=== PATIENT | female | born 1985 | race Two or more races ===

== ENCOUNTER 2018-07-09 09:11 | Emergency (ER) | payer OTHER ==
[~2018-07-09] VITALS: Ht 167.6 cm; Wt 61.2 kg
[~2018-07-09 09:11] MED LIST: CELEBREX100 MG PO
== END 2018-07-09 13:41 | disposition home or self-care (01) ==
LOC: ER 09:11
DX: O26.891 Other specified pregnancy related conditions, first trimester (principal); R10.2 Pelvic and perineal pain; Z34.01 Encounter for supervision of normal first pregnancy, first trimester

== ENCOUNTER 2018-09-24 19:49 | Emergency (ER) | payer OTHER ==
[~2018-09-24] VITALS: Ht 167.6 cm; Wt 63.5 kg
[2018-09-24] MEDS ORDERED: PRENATABS FA T1 EACH (20:20)
[2018-09-25] MEDS ORDERED: PEPCID40 MG PO (06:32)
[2018-09-25] MEDS ORDERED: PHENERGAN25 MG PO (06:32)
== END 2018-09-25 07:52 | disposition home or self-care (01) ==
LOC: ER 19:49
DX: O21.0 Mild hyperemesis gravidarum (principal); Z34.02 Encounter for supervision of normal first pregnancy, second trimester

== ENCOUNTER 2019-02-16 10:13 | Outpatient (CLI) | payer OTHER ==
[~2019-02-16 10:13] MED LIST changes: +PEPCID40 MG PO; +PHENERGAN25 MG PO; +PRENATABS FA T1 EACH
== END 2019-02-16 15:39 | disposition home or self-care (01) ==
LOC: NST 10:13
DX: Z34.83 Encounter for supervision of other normal pregnancy, third trimester (principal)

== ENCOUNTER 2019-02-18 09:03 | Outpatient (CLI) | payer OTHER | END 2019-02-18 11:10 | disposition home or self-care (01) | LOC: NST 09:03 | DX: Z34.83 Encounter for supervision of other normal pregnancy, third trimester (principal) ==

== ENCOUNTER 2019-02-20 09:27 | Inpatient (IN) | payer OTHER ==
[~2019-02-20] VITALS: Ht 167.6 cm; Wt 2.3 kg
[2019-02-20] MEDS ORDERED: ZITHROMAX200 MG PO (11:11)
[2019-02-23] MEDS ORDERED: OXYC1TAB9 PO (06:38)
[2019-02-23] MEDS ORDERED: KETO10TA2 PO (06:38)
== END 2019-02-23 14:47 | DRG 788 ==
LOC: NST 09:27 → OB/GYN 10:55 → O/R 10:55 → LDR 10:55 → O/R 12:48 → OB/GYN 13:57
PROVIDERS: ADMIT Obstetrics & Gynecology
PROC: 4A1HXCZ Monitoring of Products of Conception, Cardiac Rate, External Approach (ICD-10-PCS; 2019-02-20)
PROC: 4A033R1 Measurement of Arterial Saturation, Peripheral, Percutaneous Approach (ICD-10-PCS; 2019-02-20)
PROC: 10D00Z1 Extraction of Products of Conception, Low, Open Approach (ICD-10-PCS; principal; 2019-02-20 12:00)
DX: O82 Encounter for cesarean delivery without indication (principal); O34.211 Maternal care for low transverse scar from previous cesarean delivery; O36.5930 Maternal care for other known or suspected poor fetal growth, third trimester, not applicable or unspecified; Z3A.37 37 weeks gestation of pregnancy; Z37.0 Single live birth

== ENCOUNTER 2021-04-23 16:22 | Emergency (ER) | payer OTHER ==
[~2021-04-23] VITALS: Ht 167.6 cm; Wt 65.8 kg
[~2021-04-23 16:22] MED LIST changes: +KETO10TA2 PO; +OXYC1TAB9 PO; +ZITHROMAX200 MG PO
[2021-04-23] MEDS ORDERED: DICLOFENAC SODI75 MG PO (19:58)
[2021-04-23] MEDS ORDERED: MEDROLPACK PO (19:58)
== END 2021-04-23 20:53 | disposition home or self-care (01) ==
LOC: ER 16:22
DX: G50.0 Trigeminal neuralgia (principal)

== ENCOUNTER 2023-05-19 15:51 | Outpatient (CLI) | payer OTHER ==
[~2023-05-19 15:51] MED LIST changes: +DICLOFENAC SODI75 MG PO; +MEDROLPACK PO
== END 2023-05-19 15:52 | disposition home or self-care (01) ==
LOC: SONOGRAMA 15:51
PROVIDERS: ATTEND Pathology Anatomic Pathology & Clinical Pathology
DX: D34 Benign neoplasm of thyroid gland (principal); E07.89 Other specified disorders of thyroid

== ENCOUNTER 2023-07-10 21:09 | Emergency (ER) | payer OTHER ==
[~2023-07-10] VITALS: Ht 167.6 cm; Wt 61.2 kg
[2023-07-10] MEDS ORDERED: CEFTRIAXONE SODIUM 1,000 MG VIAL IM STA (22:43)
[2023-07-10] MEDS ORDERED: KETOROLAC TROMETHAMINE 15 MG VIAL IM STA (22:44)
[2023-07-10] MEDS ORDERED: ACETAMINOPHEN 500 MG GEL..CAP PO STA (22:44)
[2023-07-10] MEDS ORDERED: ADVIL DUAL ACT1 EACH PO (22:51)
[2023-07-10] MEDS ORDERED: CEFADROXIL500 MG PO (22:51)
== END 2023-07-10 23:13 | disposition home or self-care (01) ==
LOC: ER 21:09
DX: S09.301A Unspecified injury of right middle and inner ear, initial encounter (principal); X58.XXXA Exposure to other specified factors, initial encounter; Y93.89 Activity, other specified; Y92.9 Unspecified place or not applicable; Y99.9 Unspecified external cause status

== ENCOUNTER 2024-07-06 09:41 | Emergency (ER) | payer OTHER ==
[~2024-07-06] VITALS: Ht 167.6 cm; Wt 61.2 kg
[~2024-07-06 09:41] MED LIST changes: +ADVIL DUAL ACT1 EACH PO; +CEFADROXIL500 MG PO
[2024-07-06 10:37] VITALS: BP 100/65; O2SAT 99
[2024-07-06] MEDS ORDERED: ONDANSETRON HCL 2 MG/ML VIAL IV ONE (11:15)
[2024-07-06] MEDS ORDERED: 0.9 % SODIUM CHLORIDE 1,000 ML IV ONE (11:15)
[2024-07-06] MEDS ORDERED: FAMOtidine 10 MG/ML (4ML VIAL) IV ONE (11:15)
[2024-07-06] MEDS ORDERED: ONDANSETRON HCL 2 MG/ML VIAL ONE (11:22)
[2024-07-06] MEDS ORDERED: FAMOTIDINE/PF 20 MG/2 ML VIAL ONE (11:23)
[2024-07-06 12:13] LABS: INR 1.06; PARTIAL THROMBOPLASTIN TIME 28.4 SECONDS (22.0-34.0)
[2024-07-06 12:16] LABS: HEMATOCRIT 38.9 % (36.0-45.00); MEAN CELL VOLUME 84.7 fL (80.00-100.00); MEAN CORPUSCULAR HEMOGLOBIN 28.4 pg (27.00-32.0); MEAN CORPUSCULAR HGB CONC 33.6 g/dl (32.0-36.0); RED BLOOD COUNT 4.59 M/uL (4.00-6.00); RED CELL DISTRIBUTION WIDTH 12.8 % (11.5-14.5)
[2024-07-06 12:18] LABS: PLATELET COUNT 127 K/uL (150-450)
[2024-07-06 12:20] LABS: PROTHROMBIN TIME 11.5 SECONDS (9.0-11.5)
[2024-07-06 12:24] LABS: ALBUMIN 3.5 gm/dL (3.4-5.0); ALKALINE PHOSPHATASE 52 U/L (50-136); ALT/SGPT 23 U/L (12-78); ANION GAP 10 (10.0-20.0); AST/SGOT 22 U/L (15-37); BILIRUBIN TOTAL 0.39 mg/dL (0.3-1.2); BLOOD UREA NITROGEN 14 mg/dL (7-18); BUN CREA RATIO 22 (7.0-25.0); CARBON DIOXIDE 28 mEq/L (21-32); CHLORIDE 108 mmol/L (98-107); CREATININE SERUM 0.64 mg/dL (0.55-1.02); GFR 102.78; GLOBULINA 3.7 G/DL (2.4-3.5); GLUCOSE FASTING 111 mg/dL (65-100); OSMOLALITY SERUM 284 MOSM/KG (275-295); POTASSIUM 3.77 mEq/L (3.5-5.1); SODIUM 142 mmol/L (136-145); TOTAL PROTEIN 7.2 gm/dL (6.4-8.2)
[2024-07-06 12:50] LABS: PH,URINE 5.5 (5.0-8.0); URINE APPEARANCE Cloudy; URINE BILIRRUBIN Negative (NEGATIVE); URINE BLOOD Negative; URINE COLOR Yellow; URINE GLUCOSE Negative (NEGATIVE); URINE LEUKOCYTE Negative; URINE NITRATE Negative; URINE PROTEIN Negative (NEGATIVE)
[2024-07-06 12:57] LABS: HCG QUANTITATIVE < 1 mUI/mL (1-3)
[2024-07-06 13:13] LABS: URINE BACTERIA 2200.5 uL (0.0-1933); URINE EPITHELIAL CELLS 52.3 uL (0.0-38.8); URINE RBC 15.7 uL (0.0-20.8); URINE WBC 39.5 uL (0.0-23.2)
[2024-07-06 13:16] LABS: URINE CAST 0.44 uL (0.0-1.40); URINE KETONE 40 (NEGATIVE)
[2024-07-06] MEDS ORDERED: BUTALB/ACETAMINOPHEN/CAFFEINE 1 TAB TABLET PO ONE ×2 (14:14→14:15)
[2024-07-06] MEDS ORDERED: ZOFRAN8 MG PO (14:28)
[2024-07-06] MEDS ORDERED: PEPCID AC20 MG PO (14:28)
== END 2024-07-06 15:27 | disposition home or self-care (01) ==
LOC: ER 09:43
PROVIDERS: General Practice
DX: R19.7 Diarrhea, unspecified (principal); R10.9 Unspecified abdominal pain; A90 Dengue fever [classical dengue]; N83.292 Other ovarian cyst, left side

== ENCOUNTER 2024-10-10 20:43 | Emergency (ER) | payer OTHER ==
[~2024-10-10] VITALS: Ht 167.6 cm; Wt 63.5 kg
[~2024-10-10 20:43] MED LIST changes: +PEPCID AC20 MG PO; +ZOFRAN8 MG PO
[2024-10-10] MEDS ORDERED: METOCLOPRAMIDE HCL 5 MG/ML VIAL IM STA (21:41)
[2024-10-10] MEDS ORDERED: 0.9 % SODIUM CHLORIDE 1,000 ML IV STA (21:42)
[2024-10-10] MEDS ORDERED: FAMOTIDINE/PF 20 MG/2 ML VIAL IV PUSH STA (21:43)
[2024-10-10] MEDS ORDERED: ONDANSETRON HCL 2 MG/ML VIAL IV STA (21:43)
[2024-10-10 22:20] LABS: BASO % 0.3 % (0.1-1.2); EOS # 0.12 (0.04-0.54); EOS % 1.6 % (0.7-7.0); HEMATOCRIT 33.3 % (34.1-44.9); HEMOGLOBIN 11.5 g/dL (11.2-15.7); LYMPH # 1.78 (1.18-3.74); LYMPH % 23.5 % (19.3-53.1); MEAN CORPUSCULAR HEMOGLOBIN 28.6 pg (25.6-32.2); MONO # 0.54 (0.24-0.82); MONO % 7.1 % (4.7-12.5); NEUT % 67.4 % (34.0-71.1); PLATELET COUNT 173 K/uL (163-369); RED BLOOD COUNT 4.02 M/uL (3.93-5.22); RED CELL DISTRIBUTION WIDTH 11.9 % (11.6-14.4)
[2024-10-10 23:17] LABS: CALCIUM 9.3 mg/dL (8.5-10.1); CREATININE SERUM 0.48 mg/dL (0.55-1.02); GFR 142.52; POTASSIUM 4.48 mEq/L (3.5-5.1)
== END 2024-10-11 01:53 | disposition home or self-care (01) ==
LOC: ER 20:45
DX: O21.0 Mild hyperemesis gravidarum (principal); Z3A.01 Less than 8 weeks gestation of pregnancy